=== PATIENT | male | born 1970 ===

== ENCOUNTER → 2025-03-14 12:54 | Outpatient (BNVA) | payer MEDICARE, MEDICAID, SELFPAY | PROVIDERS: PCP Nurse Practitioner Primary Care; Referring Provider Nurse Practitioner Primary Care; Visit Provider Psychiatry & Neurology Neurology | DX: G20.A1 Parkinson's disease without dyskinesia, without mention of fluctuations (principal); G47.00 Insomnia, unspecified; F41.9 Anxiety disorder, unspecified; R41.3 Other amnesia; G25.3 Myoclonus; Z87.820 Personal history of traumatic brain injury; K59.00 Constipation, unspecified | CPT/HCPCS: 99205; G2212 ==